=== PATIENT | female | born 1950 | race Caucasian/White ===

== ENCOUNTER 2019-07-28 08:57 | Day surgery (SDC) | payer BC ==
[~2019-07-28] VITALS: Ht 162.6 cm; Wt 84.2 kg
[2019-07-28] MEDS ORDERED: SODIUM CHLORIDE 0.9% 1,000 ML IV SCH (09:24)
[2019-07-28 09:32] VITALS: BP 142/82
[2019-07-28] MEDS ORDERED: VANCOMYCIN PMX 1GM/200ML 200 ML IV ONE (10:00)
[2019-07-28] MEDS ORDERED: LIDOCAINE 1%, 10ML ONE (10:43)
[2019-07-28] MEDS ORDERED: LIDOCAINE 1%, 20ML ONE (10:43)
[2019-07-28] MEDS ORDERED: FLUMAZENIL 0.1 MG/1 ML, 5ML ONE (11:09)
[2019-07-28] MEDS ORDERED: MIDAZOLAM 1 MG/ML, 5ML ONE (11:09)
[2019-07-28] MEDS ORDERED: NALOXONE 1 MG/ML, 2ML ONE (11:09)
[2019-07-28] MEDS ORDERED: FENTANYL PF 100 MCG/2ML ONE (11:09)
== END 2019-07-28 12:55 | disposition home or self-care (01) ==
LOC: OUT 08:57
PROVIDERS: ATTEND Internal Medicine Hematology & Oncology
DX: C25.0 Malignant neoplasm of head of pancreas (principal); I10 Essential (primary) hypertension; E78.5 Hyperlipidemia, unspecified; E03.9 Hypothyroidism, unspecified; Z88.0 Allergy status to penicillin; Z88.8 Allergy status to other drugs, medicaments and biological substances; Z98.890 Other specified postprocedural states
CPT/HCPCS: 36561; 76937; 77001; 99156; 99157; J1642; J2250; J3010; J3370; J7030; J2310

== ENCOUNTER → 2019-08-10 | Outpatient (CLI) | payer BC | END | disposition home or self-care (01) | LOC: PETCFH 12:24 | PROVIDERS: ATTEND Internal Medicine Hematology & Oncology | DX: C25.0 Malignant neoplasm of head of pancreas (principal); K75.0 Abscess of liver; Z85.07 Personal history of malignant neoplasm of pancreas; I25.10 Atherosclerotic heart disease of native coronary artery without angina pectoris | CPT/HCPCS: 78815; A9552 ==

== ENCOUNTER 2019-11-29 09:55 | Inpatient (IN) | payer BC, MEDICARE ==
[~2019-11-29] VITALS: Ht 162.6 cm; Wt 69.0 kg
[2019-11-29] MEDS ORDERED: SODIUM CHLORIDE FLUSH 10ML SYR IVF ONE (10:30)
[2019-11-29 10:57] LABS: BASOPHILS # (AUTO) 0.14 x10^3/uL (0-0.1); BASOPHILS % (AUTO) 1 % (0-1); EOSINOPHILS # (AUTO) 0.11 x10^3/uL (0-0.4); EOSINOPHILS % (AUTO) 1 % (1-7); LYMPHOCYTES # (AUTO) 1.07 x10^3/uL (1-3.4); LYMPHOCYTES % (AUTO) 9 % (22-44); MD NO; MEAN CORPUSCULAR HEMOGLOBIN 30.8 pg (27.0-34.8); MEAN CORPUSCULAR HGB CONC 33.2 g/dL (32.4-35.8); MEAN PLATELET VOLUME 7.4 fL (7.4-10.4); MONOCYTES # (AUTO) 0.87 x10^3/uL (0.2-0.8); MONOCYTES % (AUTO) 7 % (2-9); NEUTROPHILS # (AUTO) 9.88 x10^3/uL (1.8-6.8); NEUTROPHILS % (AUTO) 82 % (42-75); PLATELET COUNT 212 x10^3/uL (130-400); RED BLOOD COUNT 3.34 x10^6/uL (3.82-5.3); RED CELL DISTRIBUTION WIDTH 20.3 % (9.6-15.2)
[2019-11-29 11:03] LABS: ALBUMIN 2.9 g/dL (3.4-5.0); ANION GAP 9 mmol/L (5-15); CALCIUM 10.1 mg/dL (8.5-10.1); CHLORIDE 98 mmol/L (98-107)
[2019-11-29 11:18] LABS: ALANINE AMINOTRANSFERASE 285 U/L (12-78); ALKALINE PHOSPHATASE 1211 U/L (45-117); BILIRUBIN,TOTAL 7.6 mg/dL (0.2-1.0); TOTAL PROTEIN 7.5 g/dL (6.4-8.2)
[2019-11-29] MEDS ORDERED: MORPHINE SULFATE 4 MG/ML, 1ML ONE (11:39)
[2019-11-29] MEDS ORDERED: ONDANSETRON 2MG/ML, 2ML IVPush ONE (12:00)
[2019-11-29] MEDS ORDERED: MORPHINE SULFATE 4 MG/ML, 1ML IVPush PRN (12:00)
--- NOTE | 2019-11-29 12:06 | NUR ---
BEDSIDE REPORT RECEIVED FROM BRIDGET COX. PT CARE ASSUMED AT THIS TIME.
[2019-11-29] MEDS ORDERED: CHOL500062 PO (12:25)
[2019-11-29] MEDS ORDERED: [UNRECOGNIZED DRUG - OTHER] (12:25)
[2019-11-29] MEDS ORDERED: FLUT15.845 NAS (12:25)
[2019-11-29] MEDS ORDERED: MAGN1POW13 PO (12:25)
[2019-11-29] MEDS ORDERED: LOSA1TAB22 PO (12:25)
[2019-11-29] MEDS ORDERED: MULTIVITAMIN PEG (12:25)
[2019-11-29] MEDS ORDERED: LEVO50TA PO (12:25)
[2019-11-29] MEDS ORDERED: AMIT50TA PO (12:25)
[2019-11-29] MEDS ORDERED: HYDR-3341 PO (12:25)
[2019-11-29] MEDS ORDERED: POTA20TA89 PO (12:25)
[2019-11-29] MEDS ORDERED: LIOT5TAB11 PO (12:25)
--- NOTE | 2019-11-29 12:27 | NUR ---
REPORT GIVEN TO IRMA COX, PT IS RTG, NAD, P/W/D, MAEX4, DENIES ADDITIONAL NEEDS AT THIS TIME. WCTM UNTIL TRANSFER.
[2019-11-29] MEDS ORDERED: ONDA8TAB16 SL (12:30)
[2019-11-29] MEDS ORDERED: PROC10TA2 PO (12:30)
[2019-11-29] MEDS ORDERED: OXYC-293 PO (12:30)
--- NOTE | 2019-11-29 12:31 | NUR ---
PT TO GO TO FLOOR POST MRI. [employer] AGREED UPON TRANSPORT. PAPERWORK TUBED TO FLOOR.
[2019-11-29 13:00] VITALS: BP 122/76
[2019-11-29] MEDS ORDERED: SODIUM CHLORIDE 0.9% 1,000 ML IV SCH (15:34)
[2019-11-29] MEDS ORDERED: ONDANSETRON ODT 4 MG PO PRN (16:00)
[2019-11-29] MEDS ORDERED: ONDANSETRON 2MG/ML, 2ML IVPush PRN (16:00)
[2019-11-29 16:15] VITALS: BP 130/77
[2019-11-29] MEDS: OXYcodone/APAP 5/325MG TABLET PO PRN (18:23)
[2019-11-29 18:49] LABS: MICROSCOPIC INDICATED
[2019-11-29 18:50] LABS: CULTURE INDICATED? YES
[2019-11-29 20:00] VITALS: BP 136/80
[2019-11-30 00:04] VITALS: BP 137/81
[2019-11-30] MEDS: OXYcodone/APAP 5/325MG TABLET PO PRN ×4 (00:16→21:51)
[2019-11-30 05:21] LABS: BASOPHILS # (AUTO) 0.03 x10^3/uL (0-0.1); BASOPHILS % (AUTO) 0 % (0-1); EOSINOPHILS # (AUTO) 0.04 x10^3/uL (0-0.4); EOSINOPHILS % (AUTO) 1 % (1-7); LYMPHOCYTES # (AUTO) 1.52 x10^3/uL (1-3.4); LYMPHOCYTES % (AUTO) 18 % (22-44); MD NO; MEAN CORPUSCULAR HEMOGLOBIN 30.9 pg (27.0-34.8); MEAN CORPUSCULAR HGB CONC 33.4 g/dL (32.4-35.8); MEAN CORPUSCULAR VOLUME 92.6 fL (80-100); MEAN PLATELET VOLUME 7.6 fL (7.4-10.4); MONOCYTES # (AUTO) 0.86 x10^3/uL (0.2-0.8); MONOCYTES % (AUTO) 10 % (2-9); NEUTROPHILS # (AUTO) 6.05 x10^3/uL (1.8-6.8); NEUTROPHILS % (AUTO) 71 % (42-75); PLATELET COUNT 173 x10^3/uL (130-400); RED BLOOD COUNT 2.98 x10^6/uL (3.82-5.3); RED CELL DISTRIBUTION WIDTH 20.4 % (9.6-15.2)
[2019-11-30 05:37] LABS: ALBUMIN 2.6 g/dL (3.4-5.0); ANION GAP 5 mmol/L (5-15); CALCIUM 9.7 mg/dL (8.5-10.1); CHLORIDE 102 mmol/L (98-107)
[2019-11-30 06:09] LABS: ALANINE AMINOTRANSFERASE 252 U/L (12-78); ALKALINE PHOSPHATASE 1095 U/L (45-117); BILIRUBIN,TOTAL 7.1 mg/dL (0.2-1.0); CREATININE 0.56 mg/dL (0.55-1.02); TOTAL PROTEIN 6.8 g/dL (6.4-8.2)
[2019-11-30] MEDS ORDERED: PANTOPRAZOLE 40 MG IV IVPush SCH (07:30)
[2019-11-30 07:48] VITALS: BP 140/79
[2019-11-30] MEDS ORDERED: CHLORHEXIDINE 15 ML UDC ONE (08:33)
[2019-11-30] MEDS ORDERED: CHLORHEXIDINE 15 ML UDC MM ONE (08:33)
[2019-11-30] MEDS ORDERED: PROPOFOL 50 ML ONE (08:58)
[2019-11-30] MEDS ORDERED: FENTANYL PF 100 MCG/2ML ONE (08:58)
[2019-11-30] MEDS ORDERED: ONDANSETRON 2MG/ML, 2ML ONE (09:19)
[2019-11-30] MEDS ORDERED: CIPROFLOXACIN 400MG/200ML PMX ONE (09:19)
[2019-11-30] MEDS ORDERED: HYDROmorphone 2 MG/ML, 1ML IVPush PRN (10:00)
[2019-11-30] MEDS ORDERED: DIAZEPAM 5 MG/ML, 2ML IVPush PRN (10:00)
[2019-11-30] MEDS ORDERED: EPHEDRINE 50 MG/ML, 1ML IM PRN (10:00)
[2019-11-30] MEDS ORDERED: PROMETHAZINE 25 MG/ML, 1ML IV PRN (10:00)
[2019-11-30] MEDS ORDERED: ONDANSETRON ODT 8 MG PO PRN (10:00)
[2019-11-30] MEDS ORDERED: FENTANYL PF 100 MCG/2ML IV PRN (10:00)
[2019-11-30] MEDS ORDERED: OXYcodone 5 MG/5 ML ORAL.SOL UDC PO PRN (10:00)
[2019-11-30] MEDS ORDERED: ONDANSETRON 2MG/ML, 2ML IV PRN (10:00)
[2019-11-30] MEDS ORDERED: ROCURONIUM 10MG/ML,5ML ONE (10:13)
[2019-11-30] MEDS ORDERED: SUCCINYLCHOLINE 20 MG/ML, 10ML ONE (10:13)
[2019-11-30] MEDS ORDERED: PROPOFOL 10 MG/ML, 20ML ONE ×3 (10:14)
[2019-11-30] MEDS: LACTATED RINGERS 1,000 ML IV SCH ×2 (11:00→21:45)
[2019-11-30] MEDS: SUCRALFATE 1 GM TABLET PO SCH ×3 (11:00→20:39)
[2019-11-30] MEDS ORDERED: OMNIPAQUE 350 MG/ML, 50 ML BOTTLE ONE (11:06)
[2019-11-30 13:31] VITALS: BP 143/84
[2019-11-30] MEDS ORDERED: BUPIVACAINE/PF 0.25% ONE (15:05)
[2019-11-30] MEDS ORDERED: ETHYL ALCOHOL 98%, 5 ML ONE (15:05)
[2019-11-30] MEDS ORDERED: POTASSIUM CHLORIDE 20 MEQ in SODIUM CHLORIDE 0.9% 1,000 ML IV SCH (15:34)
[2019-11-30 17:02] LABS: CULTURE INDICATED? YES; MICROSCOPIC INDICATED
[2019-11-30 18:39] VITALS: BP 122/79
[2019-11-30] MEDS: PANTOPRAZOLE 40 MG IV IVPush SCH (20:39)
[2019-11-30] MEDS: POTASSIUM CHLORIDE 20 MEQ in SODIUM CHLORIDE 0.9% 1,000 ML IV SCH (20:55)
[2019-11-30] MEDS: AMITRIPTYLINE 50 MG TABLET PO SCH (22:44)
[2019-12-01 02:46] VITALS: BP 141/67
[2019-12-01 02:47] VITALS: BP 119/71
[2019-12-01 02:48] VITALS: BP 101/70
[2019-12-01] MEDS: OXYcodone/APAP 5/325MG TABLET PO PRN ×3 (03:01→17:46)
[2019-12-01 04:56] LABS: BASOPHILS % (AUTO) 1 % (0-1); EOSINOPHILS # (AUTO) 0.07 x10^3/uL (0-0.4); EOSINOPHILS % (AUTO) 1 % (1-7); LYMPHOCYTES # (AUTO) 1.18 x10^3/uL (1-3.4); LYMPHOCYTES % (AUTO) 12 % (22-44); MD NO; MEAN CORPUSCULAR HEMOGLOBIN 31.9 pg (27.0-34.8); MEAN CORPUSCULAR HGB CONC 34.5 g/dL (32.4-35.8); MEAN CORPUSCULAR VOLUME 92.4 fL (80-100); MEAN PLATELET VOLUME 7.4 fL (7.4-10.4); MONOCYTES # (AUTO) 1.05 x10^3/uL (0.2-0.8); MONOCYTES % (AUTO) 11 % (2-9); NEUTROPHILS # (AUTO) 7.28 x10^3/uL (1.8-6.8); NEUTROPHILS % (AUTO) 75 % (42-75); PLATELET COUNT 168 x10^3/uL (130-400); RED BLOOD COUNT 2.64 x10^6/uL (3.82-5.3); RED CELL DISTRIBUTION WIDTH 19.7 % (9.6-15.2)
[2019-12-01 05:05] LABS: ALBUMIN 2.3 g/dL (3.4-5.0); CALCIUM 8.7 mg/dL (8.5-10.1); CHLORIDE 103 mmol/L (98-107)
[2019-12-01 05:11] LABS: ALANINE AMINOTRANSFERASE 185 U/L (12-78); ALKALINE PHOSPHATASE 992 U/L (45-117); ANION GAP 8 mmol/L (5-15); BILIRUBIN,TOTAL 3.2 mg/dL (0.2-1.0); CREATININE 0.54 mg/dL (0.55-1.02); TOTAL PROTEIN 6.1 g/dL (6.4-8.2)
[2019-12-01] MEDS: SUCRALFATE 1 GM TABLET PO SCH ×4 (06:30→20:22)
[2019-12-01] MEDS: LEVOTHYROXINE 50 MCG TABLET PO SCH (06:30)
[2019-12-01] MEDS: LIOTHYRONINE 5 MCG TABLET PO SCH (06:31)
[2019-12-01] MEDS: LACTATED RINGERS 1,000 ML IV SCH (06:31)
[2019-12-01 07:50] VITALS: BP 151/80
[2019-12-01] MEDS: LOSARTAN 100 MG TAB PO SCH (09:40)
[2019-12-01] MEDS: CHOLECALCIFEROL 5,000u TAB PO SCH (09:40)
[2019-12-01] MEDS: HYDROCHLOROTHIAZIDE 25 MG TABLET PO SCH (09:40)
[2019-12-01] MEDS: PANTOPRAZOLE 40 MG IV IVPush SCH ×2 (09:41→20:22)
[2019-12-01] MEDS ORDERED: POLYETHYLENE GLYCOL 17 GM PACKET PO ONE (10:30)
[2019-12-01] MEDS: FLUTICASONE NASAL SPRAY 16GM NAS SCH (10:54)
[2019-12-01] MEDS: POTASSIUM CHLORIDE 20 MEQ in SODIUM CHLORIDE 0.9% 1,000 ML IV SCH (10:54)
[2019-12-01] MEDS ORDERED: POTASSIUM CHLORIDE 40 MEQ in SODIUM CHLORIDE 0.9% 500 ML IV ONE (12:30)
[2019-12-01 12:33] VITALS: BP 123/82
[2019-12-01 20:15] VITALS: BP 130/82
[2019-12-01] MEDS: AMITRIPTYLINE 50 MG TABLET PO SCH (20:22)
[2019-12-02] MEDS: OXYcodone/APAP 5/325MG TABLET PO PRN ×3 (01:30→14:51)
[2019-12-02 02:00] VITALS: BP 128/82
[2019-12-02 05:21] LABS: BASOPHILS # (AUTO) 0.05 x10^3/uL (0-0.1); BASOPHILS % (AUTO) 1 % (0-1); EOSINOPHILS # (AUTO) 0.26 x10^3/uL (0-0.4); EOSINOPHILS % (AUTO) 3 % (1-7); LYMPHOCYTES # (AUTO) 1.14 x10^3/uL (1-3.4); LYMPHOCYTES % (AUTO) 12 % (22-44); MD NO; MEAN CORPUSCULAR HEMOGLOBIN 31.9 pg (27.0-34.8); MEAN CORPUSCULAR HGB CONC 33.7 g/dL (32.4-35.8); MEAN CORPUSCULAR VOLUME 94.8 fL (80-100); MEAN PLATELET VOLUME 7.6 fL (7.4-10.4); MONOCYTES # (AUTO) 0.79 x10^3/uL (0.2-0.8); MONOCYTES % (AUTO) 9 % (2-9); NEUTROPHILS # (AUTO) 7.09 x10^3/uL (1.8-6.8); NEUTROPHILS % (AUTO) 76 % (42-75); PLATELET COUNT 167 x10^3/uL (130-400); RED BLOOD COUNT 2.54 x10^6/uL (3.82-5.3); RED CELL DISTRIBUTION WIDTH 20.1 % (9.6-15.2)
[2019-12-02 05:24] LABS: ALBUMIN 2.2 g/dL (3.4-5.0); ANION GAP 9 mmol/L (5-15); CALCIUM 8.5 mg/dL (8.5-10.1); CHLORIDE 105 mmol/L (98-107)
[2019-12-02 05:38] LABS: ALANINE AMINOTRANSFERASE 151 U/L (12-78); ALKALINE PHOSPHATASE 956 U/L (45-117); BILIRUBIN,TOTAL 2.6 mg/dL (0.2-1.0); CREATININE 0.42 mg/dL (0.55-1.02)
[2019-12-02 07:52] VITALS: BP 138/74
[2019-12-02] MEDS: LEVOTHYROXINE 50 MCG TABLET PO SCH (07:52)
[2019-12-02] MEDS: SUCRALFATE 1 GM TABLET PO SCH ×2 (07:53→11:33)
[2019-12-02] MEDS: LIOTHYRONINE 5 MCG TABLET PO SCH (07:53)
[2019-12-02] MEDS: HYDROCHLOROTHIAZIDE 25 MG TABLET PO SCH (07:54)
[2019-12-02] MEDS: CHOLECALCIFEROL 5,000u TAB PO SCH (07:54)
[2019-12-02] MEDS: LOSARTAN 100 MG TAB PO SCH (07:54)
[2019-12-02] MEDS: FLUTICASONE NASAL SPRAY 16GM NAS SCH (07:55)
[2019-12-02] MEDS: PANTOPRAZOLE 40 MG IV IVPush SCH (07:56)
[2019-12-02] MEDS ORDERED: POLYETHYLENE GLYCOL 17 GM PACKET PO SCH (09:30)
[2019-12-02] MEDS ORDERED: NADOLOL 20 MG TABLET PO SCH (09:30)
[2019-12-02 14:47] VITALS: BP 127/74
[2019-12-02] MEDS ORDERED: POTASSIUM CHLORIDE 10% 40 MEQ/30 ML UDC PO ONE (15:00)
[2019-12-02] MEDS ORDERED: NADO20TA12 PO (15:03)
[2019-12-02] MEDS ORDERED: POLY17PO5 PO (15:03)
[2019-12-02] MEDS ORDERED: PANT40VI PO (15:03)
[2019-12-02] MEDS ORDERED: SUCR1TAB33 PO (15:03)
== END 2019-12-02 15:50 | disposition home or self-care (01) | DRG 444 ==
LOC: ED 10:20 → EDIP 12:08 → 3N 12:48
PROVIDERS: ADMIT Internal Medicine; ATTEND Hospitalist
PROC: 0FC98ZZ Extirpation of Matter from Common Bile Duct, Via Natural or Artificial Opening Endoscopic (ICD-10-PCS; 2019-11-30)
PROC: BF101ZZ Fluoroscopy of Bile Ducts using Low Osmolar Contrast (ICD-10-PCS; 2019-11-30)
PROC: 0F798DZ Dilation of Common Bile Duct with Intraluminal Device, Via Natural or Artificial Opening Endoscopic (ICD-10-PCS; principal; 2019-11-30 09:00)
DX: K83.1 Obstruction of bile duct (principal); K26.4 Chronic or unspecified duodenal ulcer with hemorrhage; C25.9 Malignant neoplasm of pancreas, unspecified; C78.7 Secondary malignant neoplasm of liver and intrahepatic bile duct; E46 Unspecified protein-calorie malnutrition; E87.1 Hypo-osmolality and hyponatremia; I85.00 Esophageal varices without bleeding; D64.9 Anemia, unspecified; D72.829 Elevated white blood cell count, unspecified; Z68.26 Body mass index [BMI] 26.0-26.9, adult; E78.5 Hyperlipidemia, unspecified; E86.0 Dehydration; E87.6 Hypokalemia; F03.90 Unspecified dementia, unspecified severity, without behavioral disturbance, psychotic disturbance, mood disturbance, and anxiety; I10 Essential (primary) hypertension; K59.00 Constipation, unspecified; K82.8 Other specified diseases of gallbladder; R62.7 Adult failure to thrive; Z83.3 Family history of diabetes mellitus; Z85.07 Personal history of malignant neoplasm of pancreas; Z86.73 Personal history of transient ischemic attack (TIA), and cerebral infarction without residual deficits; Z87.19 Personal history of other diseases of the digestive system; Z88.6 Allergy status to analgesic agent; Z88.0 Allergy status to penicillin; Z91.013 Allergy to seafood
CPT/HCPCS: 36415; 74181; 74328; 76700; 80053; 81001; 82248; 82962; 83690; 85025; 87086; 93005; 96374; G0378; J0744; J2405; J2704; J3010; J3480; J3490; Q0162; Q9967; C1769; C1876; C9113; J0330; J2270; J7030; J7040; J7120